=== PATIENT | male | born 2000 | race Caucasian/White ===

== ENCOUNTER 2018-12-23 06:36 | Day surgery (SDC) | payer OTHER, BC ==
[2018-12-23] MEDS: SOD CHLORIDE 0.9% 1,000 ML IV (07:55)
[2018-12-23] MEDS: CEFAZOLIN 2 GM/50 ML (PMX) 50 ML IVPB (08:00)
[2018-12-23 08:47] LABS: ADD MAN DIFF? NO
[2018-12-23 08:52] LABS: WHITE BLOOD COUNT 8.8 10^3/ul (4.8-10.8)
[2018-12-23 08:52] LABS: BASOPHILS % 0.3 % (0.0-2.0); EOSINOPHILS # 0.6 10^3/ul (0.0-0.5); EOSINOPHILS % 6.3 % (0.0-7.0); HEMOGLOBIN 14.5 g/dl (14.0-18.0); LYMPHOCYTES # 2.5 10^3/ul (0.8-2.9); LYMPHOCYTES % 28.1 % (18.0-55.0); MEAN CORPUSCULAR HEMOGLOBIN 29.1 pg (29.0-33.0); MEAN CORPUSCULAR HGB CONC 33.7 g/dl (32.0-37.0); MEAN CORPUSCULAR VOLUME 86.2 fl (72.0-104.0); MONOCYTE # 0.6 10^3/ul (0.3-0.9); MONOCYTES % 6.3 % (0.0-13.0); NEUTROPHIL # 5.2 10^3/ul (1.6-7.5); NEUTROPHILS % 58.7 % (30.0-74.0); PLATELET COUNT 297 10^3/UL (140-415); RED BLOOD COUNT 4.99 10^6/ul (4.70-6.10); RED CELL DISTRIBUTION WIDTH 12.6 % (11.5-14.5)
[2018-12-23 08:53] LABS: INR 0.93; PARTIAL THROMBOPLASTIN TIME 28.7 Sec (23.0-35.0); PROTIME 12.6 Sec (11.9-14.9)
[2018-12-23 08:55] LABS: ALANINE AMINOTRANSFERASE 58 IU/L (13-69); ALBUMIN 4.8 g/dl (3.3-4.9); ALBUMIN/GLOBULIN RATIO 1.29; ALKALINE PHOSPHATASE 77 IU/L (42-121); ANION GAP 13 (5-13); ASPARTATE AMINO TRANSFERASE 43 IU/L (15-46); BILIRUBIN,INDIRECT 0.2 mg/dl (0-1.1); BILIRUBIN,TOTAL 0.2 mg/dl (0.2-1.3); BLOOD UREA NITROGEN 13 mg/dl (7-20); CALCIUM 9.6 mg/dl (8.4-10.2); CARBON DIOXIDE 25 mmol/L (21-31); CHLORIDE 104 mmol/L (97-110); CREATININE 0.75 mg/dl (0.61-1.24); Estimated GFR > 60 mL/min (>60); GLUCOSE 134 mg/dl (70-220); POTASSIUM 4.6 mmol/L (3.5-5.1); SODIUM 142 mmol/L (135-144); TOTAL PROTEIN 8.5 g/dl (6.1-8.1)
[2018-12-23] MEDS ORDERED: LIDOCAINE 2% (SDV) 5 ML INJ (10:33)
[2018-12-23] MEDS ORDERED: PROPOFOL 40 ML (10:33)
[2018-12-23] MEDS ORDERED: ROCURONIUM 50 MG INJ (10:33)
[2018-12-23] MEDS ORDERED: CEFAZOLIN 1 GM INJ (10:34)
[2018-12-23] MEDS ORDERED: ONDANSETRON 4 MG INJ (10:37)
[2018-12-23] MEDS ORDERED: NEOSTIGMINE 3 MG/3 ML SYRINGE ×2 (10:37→11:16)
[2018-12-23] MEDS ORDERED: GLYCOPYRROLATE 0.4 MG INJ ×2 (10:37→11:16)
[2018-12-23] MEDS ORDERED: DEXAMETHASONE 4 MG/ML 5 ML INJ (10:37)
[2018-12-23] MEDS ORDERED: FAMOTIDINE 20 MG INJ (10:38)
[2018-12-23] MEDS ORDERED: SUCCINYLCHOLINE CHLORIDE 100 MG/5 ML SYG IV (10:41)
[2018-12-23] MEDS ORDERED: BUPIVACAINE 0.25%/EPI (SDV) 30 ML INJ (10:49)
[2018-12-23] MEDS: BUPIVACAINE 0.25%/EPI (SDV) 30 ML INJ (10:53)
[2018-12-23] MEDS: LIDOCAINE 1% (MPF) 30 ML INJ (10:54)
[2018-12-23] MEDS ORDERED: MEPERIDINE 25 MG INJ IV (11:30)
[2018-12-23] MEDS ORDERED: hydrALAzine 20 MG INJ IV (11:30)
[2018-12-23] MEDS ORDERED: HYDROmorphONE 1 MG/5 ML IV SYRINGE IV (11:30)
[2018-12-23] MEDS ORDERED: ONDANSETRON 4 MG INJ IV (11:30)
[2018-12-23] MEDS ORDERED: FENTAnyl 50 MCG/ML VIAL IV (11:30)
[2018-12-23] MEDS ORDERED: LABETALOL HCL 20MG INJ (11:40)
[2018-12-23] MEDS: LABETALOL HCL 20MG INJ IV (11:59)
[2018-12-23] MEDS: HYDROmorphONE 1 MG/5 ML IV SYRINGE IV (12:23)
[2018-12-23] MEDS: KETOROLAC 30 MG INJ IV (12:23)
== END 2018-12-23 13:24 | disposition home or self-care (01) ==
LOC: SDS 06:36
DX: L05.91 Pilonidal cyst without abscess (principal)
CPT/HCPCS: 11772; 80053; 85025; 85610; 85730; 88304

== ENCOUNTER 2019-01-26 05:46 | Day surgery (SDC) | payer OTHER ==
[2019-01-26] MEDS ORDERED: FENTAnyl 50 MCG/ML VIAL (07:21)
[2019-01-26] MEDS ORDERED: MIDAZOLAM 1 MG/ML 2 ML INJ (07:21)
[2019-01-26 07:36] LABS: ADD MAN DIFF? NO
[2019-01-26 07:39] LABS: BASOPHILS % 0.2 % (0.0-2.0); EOSINOPHILS # 0.5 10^3/ul (0.0-0.5); EOSINOPHILS % 4.2 % (0.0-7.0); HEMATOCRIT 44.8 % (42.0-52.0); HEMOGLOBIN 14.8 g/dl (14.0-18.0); LYMPHOCYTES % 27.6 % (18.0-55.0); MEAN CORPUSCULAR HEMOGLOBIN 29.1 pg (29.0-33.0); MEAN PLATELET VOLUME 9.6 fl (7.4-10.4); MONOCYTE # 0.7 10^3/ul (0.3-0.9); MONOCYTES % 6.3 % (0.0-13.0); NEUTROPHIL # 6.6 10^3/ul (1.6-7.5); NEUTROPHILS % 61.1 % (30.0-74.0); PLATELET COUNT 328 10^3/UL (140-415); RED BLOOD COUNT 5.09 10^6/ul (4.70-6.10); RED CELL DISTRIBUTION WIDTH 12.3 % (11.5-14.5)
[2019-01-26 07:39] LABS: WHITE BLOOD COUNT 10.8 10^3/ul (4.8-10.8)
[2019-01-26 07:57] LABS: INR 0.93; PROTIME 12.6 Sec (11.9-14.9)
[2019-01-26 07:58] LABS: PARTIAL THROMBOPLASTIN TIME 30.2 Sec (23.0-35.0)
[2019-01-26] MEDS ORDERED: ROCURONIUM 50 MG INJ (07:58)
[2019-01-26] MEDS ORDERED: SUCCINYLCHOLINE CHLORIDE 100 MG/5 ML SYG IV (07:58)
[2019-01-26] MEDS ORDERED: LIDOCAINE 2% (SDV) 5 ML INJ (07:58)
[2019-01-26] MEDS ORDERED: CEFAZOLIN 1 GM INJ (07:58)
[2019-01-26] MEDS ORDERED: PROPOFOL 20 ML (07:58)
[2019-01-26 07:59] LABS: ALANINE AMINOTRANSFERASE 44 IU/L (13-69); ALBUMIN 4.7 g/dl (3.3-4.9); ALBUMIN/GLOBULIN RATIO 1.27; ALKALINE PHOSPHATASE 87 IU/L (42-121); ANION GAP 11 (5-13); ASPARTATE AMINO TRANSFERASE 26 IU/L (15-46); BILIRUBIN,INDIRECT 0.3 mg/dl (0-1.1); BILIRUBIN,TOTAL 0.3 mg/dl (0.2-1.3); BLOOD UREA NITROGEN 14 mg/dl (7-20); CARBON DIOXIDE 28 mmol/L (21-31); CHLORIDE 105 mmol/L (97-110); Estimated GFR > 60 mL/min (>60); GLUCOSE 160 mg/dl (70-220); POTASSIUM 4.6 mmol/L (3.5-5.1); SODIUM 144 mmol/L (135-144); TOTAL PROTEIN 8.4 g/dl (6.1-8.1)
[2019-01-26] MEDS: SOD CHLORIDE 0.9% 1,000 ML IV (08:00)
[2019-01-26] MEDS ORDERED: DEXAMETHASONE 4 MG/ML 5 ML INJ (08:01)
[2019-01-26] MEDS ORDERED: FAMOTIDINE 20 MG INJ (08:01)
[2019-01-26] MEDS ORDERED: METOCLOPRAMIDE 10 MG INJ (08:01)
[2019-01-26] MEDS ORDERED: ONDANSETRON 4 MG INJ (08:01)
[2019-01-26 08:04] LABS: CALCIUM 10.3 mg/dl (8.4-10.2)
[2019-01-26] MEDS ORDERED: PROVENTIL HFA 6.7GM INHALER (08:06)
[2019-01-26] MEDS: CEFAZOLIN 2 GM/50 ML (PMX) 50 ML IVPB (08:40)
[2019-01-26] MEDS ORDERED: SUGAMMADEX SODIUM 200 MG/2 ML VIAL IV (08:48)
[2019-01-26] MEDS ORDERED: GLYCOPYRROLATE 0.4 MG INJ (08:53)
[2019-01-26] MEDS: BUPIVACAINE 0.25%/EPI (SDV) 30 ML INJ (09:16)
[2019-01-26] MEDS: LIDOCAINE 1% (MPF) 30 ML INJ (09:16)
== END 2019-01-26 11:27 | disposition home or self-care (01) ==
LOC: SDS 05:46
DX: L05.91 Pilonidal cyst without abscess (principal)
CPT/HCPCS: 11770; 71045; 80053; 85025; 85610; 85730; 88304